=== PATIENT | female | born 1960 | race Caucasian/White ===

== ENCOUNTER → 2017-03-05 | Outpatient (CLI) | payer BC ==
[2017-03-05 17:35] LABS: Basophils % (A) 1 %; CH 30.8; CHCM 33.4; Eosinophils # (A) 0.2 k/uL (0-0.7); Eosinophils % (A) 3 %; HCT 40.8 % (34.0-46.0); HDW 2.36; HGB 13.5 gm/dL (11.4-16.0); Luc # (Auto) 0.16; Luc % (Auto) 2; Lymphocytes # (A) 2.2 k/uL (1.0-4.8); Lymphocytes % (A) 32 %; MCH 30.8 pg (25.0-35.0); MCHC 33.2 g/dL (31.0-37.0); MCV 92.7 fL (80.0-100.0); Mean Platelet Volume 6.3; Monocytes # (A) 0.4 k/uL (0-1.0); Monocytes % (A) 5 %; Neutrophils # (A) 3.8 k/uL (1.3-7.7); Neutrophils % (A) 56 %; RDW 13.4 % (11.5-15.5); WBC 6.7 k/uL (3.8-10.6); WBC (Perox) 6.89
[2017-03-05 17:50] LABS: Anion Gap 10 mmol/L; Blood Urea Nitrogen 19 mg/dL (7-17); Carbon Dioxide 23 mmol/L (22-30); Chloride 107 mmol/L (98-107); Glucose 89 mg/dL (74-99); Non-African American GFR(MDRD) >60 (>60 ml/min/1.73 sqM); Potassium 4.4 mmol/L (3.5-5.1); Sodium 140 mmol/L (137-145)
== END | disposition home or self-care (01) ==
LOC: LABPAT 17:02
PROVIDERS: ATTEND Obstetrics & Gynecology
DX: Z01.812 Encounter for preprocedural laboratory examination (principal)
CPT/HCPCS: 80051; 82565; 82947; 84520; 85025; 86850; 86900; 86901; 87086

== ENCOUNTER 2017-03-12 06:25 | Day surgery (SDC) | payer BC ==
--- NOTE | 2017-03-07 17:01 | HP ---
DATE OF ADMISSION: 03/12/2017 This is a 56-year-old female who presented initially with a report increasing perineal pressure and bulge. She is menopausal and not taking hormonal replacement therapy. She states that the pressure and bulge have been increasing, most especially over the past 12 months. She is sexually active and denies pain with intercourse. There is no issue with incontinence. There are no bowel complaints. The patient has been counseled regarding her condition and about the option of pessary, which she is declining. Review of systems is otherwise negative. Past medical history is significant for: 1. Cystocele diagnosed in the past. 2. Renal cancer in 2007. 3. Hyperlipidemia. PAST SURGICAL HISTORY: 1. Breast biopsy of the right breast of benign nature. 2. Cholecystectomy. 3. Colonoscopy in 2009 with benign polyps. 4. Knee surgery with repair of a ligament in 1974. 5. Lap band placed in 2004, revised in 2007. 6. Nephrectomy in 2007 on the right. 7. Previous tubal ligation. CURRENT MEDICATIONS: 1. Hydrocodone. 2. Ibuprofen as needed for pain. 3. Potassium 99 mg daily. 4. Vitamin B12. 5. Vitamin C. 6. Vitamin D daily. ALLERGIES include: 1. DARVOCET, to which she reports itching. 2. LORTAB, to which she reports hallucinations. Family history is significant for breast cancer in the patient's mother, diabetes and hyperlipidemia as well as hypertension in the patient's father, prostate cancer in patient's father. Reproductive history is significant for 2 liveborn vaginal deliveries, larger baby 8 pounds 8 ounces. 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 She is . Her 's name is Sigifredo. She denies alcohol or drug use. She is a former tobacco smoker but quit at age 24. On exam, this is a pleasant white female, 5 feet 4-1/2 inches, 198 pounds, BMI 33, blood pressure 128/82. The HEENT exam is negative. No thyromegaly. No cervical lymphadenopathy. The breast exam reveals breasts to be bilaterally symmetric to inspection. No skin dimpling, nipple discharge or axillary adenopathy. The abdomen is moderately obese; no obvious organosplenomegaly. Active bowel sounds noted. No CVA tenderness. Cardiac exam reveals regular rate and rhythm without murmur, click or rub. The chest is clear to auscultation in all hansen. The extremities reveal no edema. Good peripheral pulses. On pelvic exam, the cervix is multiparous in appearance. There is a grade 3 uterine prolapse noted along with a grade 3 cystocele. There is no obvious rectocele. Good sphincter tone is appreciated. FIT-negative stool sample. Negative inguinal lymphadenopathy. IMPRESSION: Increasingly symptomatic grade 3 cystocele and grade 3 uterine prolapse. Patient counseled thoroughly and declining option for pessary. She is instead choosing surgical intervention. PLAN: We will proceed with vaginal hysterectomy and cystocele repair. The ovaries will be inspected and left in situ if within normal limits to inspection. The patient does consent to oophorectomy if the ovaries for some reason appear abnormal to inspection. We have reviewed the risks of surgery to include bleeding, infection, perforation or damage to bowel, bladder, ureters, blood vessels or indeed any pelvic or abdominal organs. The risks of anesthesia, aspiration and nerve damage have also been reviewed. The unlikely but possible scenario of is also reviewed. All questions are answered. The ACOG pamphlet on this procedure has been provided and reviewed by the patient. Second opinion has been offered and declined.
[~2017-03-12 06:25] MED LIST: CLINDAMYCIN 900 MG in DEXTROSE 5% IN WATER 50 ML IVPB ONE; DEXAMETHASONE SOD PHOSPHATE 10 MG/ML 1 ML VIAL IV ONE; GENTAMICIN 350 MG in SODIUM CHLORIDE 0.9% 100 ML IVPB ONE; HYDROmorphone 1 MG/ML 1 ML SYRINGE IVP PRN; LIDOCAINE 1% 20 ML VIAL (10MG/ML) FOR IV START INTRADERMA PRN; MIDAZOLAM 2 MG/2 ML VIAL IV PRN; ONDANSETRON 4 MG/2 ML VIAL IVP ONE; SCOPOLAMINE 1.5MG/72HR PATCH TRANSDERM ONE
[2017-03-12] MEDS ORDERED: LACTATED RINGERS 1,000 ML IV ONE ×2 (06:40→09:25)
[2017-03-12] MEDS ORDERED: fentaNYL (PF) 50 MCG/ML 2 ML AMP ONE (08:36)
[2017-03-12] MEDS ORDERED: MORPHINE SULFATE (PF) 0.3 MG/0.3 ML SYR ONE (08:36)
[2017-03-12] MEDS ORDERED: PROPOFOL 10 MG/ML 20 ML VIAL IV ONE (08:36)
[2017-03-12] MEDS ORDERED: LIDOCAINE 1% INJ 10MG/ML (20 ML MDV) ONE (08:36)
[2017-03-12] MEDS ORDERED: MIDAZOLAM 2 MG/2 ML VIAL ONE (08:36)
[2017-03-12] MEDS ORDERED: VASOPRESSIN 20 UNIT/ML 1 ML VIAL SQ ONE (08:56)
[2017-03-12] MEDS ORDERED: BACITRACIN 500 UNIT/GM OINT 28.4 GM TUBE TOPICAL ONE (08:57)
[2017-03-12] MEDS ORDERED: KETOROLAC 30 MG/ML 1 ML VIAL IVP PRN (09:35)
[2017-03-12] MEDS ORDERED: SIMETHICONE 80 MG CHEWABLE PO PRN (09:35)
[2017-03-12] MEDS ORDERED: Acetaminophen-Codeine 300-30mg TAB PO PRN (09:35)
[2017-03-12] MEDS ORDERED: METOCLOPRAMIDE 5 MG/ML 2 ML VIAL IVP PRN (09:35)
[2017-03-12] MEDS ORDERED: ONDANSETRON 4 MG/2 ML VIAL IVP PRN ×2 (09:35→10:25)
[2017-03-12] MEDS ORDERED: ZOLPIDEM 5 MG TAB PO PRN (09:35)
--- NOTE | 2017-03-12 09:35 | P.OP ---
Date of Procedure: 03/12/17 Preoperative Diagnosis: Grade 3 cystocele, grade 3 uterine prolapse Postoperative Diagnosis: Normal-appearing ovaries bilaterally Procedure(s) Performed: Vaginal hysterectomy, anterior colporrhaphy Implants: Anesthesia: spinal Surgeon: Mary Ortiz Telex Operator #1: Mercedes Foote Estimated Blood Loss (ml): 25 IV fluids (ml): 750 Urine output (ml): 200 Pathology: other (Cervix and uterus) Condition: stable Disposition: PACU Indications for Procedure: Operative Findings: Description of Procedure: Patient is brought to the operating suite where a spinal with Duramorph is given. She's placed in the dorsal lithotomy position. The appropriate timeout is performed to assure proper patient and procedural identification. Antibiotics are given. The cervix, vagina, perineum and periurethral areas are all prepped and draped in usual sterile fashion. The bladder is drained for 200 mL of clear yellow urine. The weighted speculum was placed into the vagina. The anterior lip of the cervix is grasped with a double-tooth tenaculum. The cervix is injected circumferentially with a dilute Pitressin solution. A quechan blade scalpel is used to incise the mucosa circumferentially with V like positioning posteriorly. Sponge rolled finger is used to sweep the overlying mucosa from the underlying fascial planes. The peritoneum is entered at 6:00 and suture tied with 2-0 Vicryl suture. The large billed speculum was placed into the peritoneal cavity. At all times the mucosa is swept well from the underlying planes to avoid any bladder and/or ureteral injury. The right uterosacral cardinal ligament complex is identified, clamped cut and held with a hemostat. The same procedure is carried out on the left uterosacral cardinal ligament complex. Uterine vasculature is identified, clamped cut and suture ligated. 2 additional pedicles are taken superior to the vessels. Again, at all times the bladder swept well from the operative field. The anterior peritoneum was entered, Torsten clamps are used across the final pedicles and the specimen is removed. Uterus is noted to contain fibroids. A sponge stick is used to visualize all pedicles, all of which are hemostatically intact. The speculum is changed to the shallow billed speculum. The 2-0 Vicryl suture at 6:00 is then brought around in a pursestring fashion to close the peritoneum. The previously held uterosacral cardinal ligaments are brought across to incorporate the opposite complex as well as vaginal mucosa. An additional [id number] sutures used of 0 Vicryl inferior to this. The anterior edges are held with Allis clamps. The anterior mucosa is now injected with the same dilute Pitressin solution in the midline. The mucosa is opened with Metzenbaum scissors to approximately 1.5 cm inferior to the urethra. The edges are held with Allis clamps and a sponge rolled finger is used to sweep the mucosa from the underlying fascial plane. Tyler catheter is then placed and urine is still clear. 2-0 Vicryl sutures used in an interrupted fashion to bring the fascial edges together in the midline thereby completely reducing the cystocele. The redundant mucosa is trimmed with Metzenbaum scissors. 2-0 Vicryl and her running stitch is used for final mucosal closure. The vagina is packed with one-inch iodophor gauze. Tyelr is noted to be draining clear urine. All sponge needle and enhancement counts are correct at the end of the procedure. Patient is brought back to recovery room in stable condition with vital signs pulse 76, blood pressure 108/69. Complications: None.
[2017-03-12] MEDS ORDERED: diphenhydrAMINE 50 MG/ML 1 ML VIAL IVP PRN (10:25)
[2017-03-12] MEDS ORDERED: NALBUPHINE 10 MG/ML AMPUL IV PRN (10:25)
[2017-03-12] MEDS ORDERED: NALOXONE 0.4 MG/ML 1 ML VIAL IV PRN (10:25)
[2017-03-12] MEDS ORDERED: MORPHINE SULFATE 4 MG/ML SYRINGE IVP PRN (10:25)
[2017-03-12] MEDS: LACTATED RINGERS 1,000 ML IV SCH ×2 (13:50→21:33)
[2017-03-12] MEDS: diphenhydrAMINE 50 MG/ML 1 ML VIAL IVP PRN (16:44)
[2017-03-12 18:01] VITALS: BMI 32.5
[2017-03-12] MEDS ORDERED: SENNOSIDES-DOCUSATE SODIUM 1 EACH TAB PO SCH (21:00)
[2017-03-13] MEDS: diphenhydrAMINE 50 MG/ML 1 ML VIAL IVP PRN (07:40)
[2017-03-13 07:51] VITALS: BP 100/60; PULSE 66; RESP 16; TEMP 97.9
--- NOTE | 2017-03-13 08:55 | P.DS ---
Providers Date of admission: 03/12/17 Expected date of discharge: 03/13/17 Attending physician: Mary Ortiz Primary care physician: Milo [facility] Course: This is a 56-year-old female who presented with a grade 3 uterine prolapse and grade 3 cystocele, requesting surgical repair. Please see my dictated history and physical for details. Patient was admitted and underwent vaginal hysterectomy and cystocele repair under my care on 03/12/2017. She did well intraoperatively, vaginal pack was placed and Tyler catheter also placed to direct drainage. She did receive a spinal with Duramorph for analgesia. Please see my dictated operative note for details. This morning the patient is doing well. She is ambulating and passing flatus. The vaginal packing and Tyler catheter had been removed. Bladder training is occurring at this time. She is tolerating regular diet, pain is well controlled. There is only scant vaginal drainage. There is no CVA tenderness, abdomen is soft and nontender, active bowel sounds are noted. Extremities are negative. Chest is clear. Patient will be discharged home later today in good condition. I have reminded her no intercourse, tampons or douching. She will use extra strength Tylenol as needed for pain, and I have given her prescription for Tylenol No. 3 to be used every 4-6 hours as needed as well. I've asked her to call me with any difficulties voiding, any problems with bowel movements, any copious or red vaginal drainage, with any pain not alleviated by these medications as noted above, or indeed with any concerns. She will resume all of her home pain medications. No intercourse tampons or douching, no heavy lifting, no driving for 2 weeks. She will follow-up in the office with me in 2 weeks. Patient Condition at Discharge: Good Plan - Discharge Summary New Discharge Prescriptions: No Action Cholecalciferol [Vitamin D3] 1,000 unit PO DAILY Cyanocobalamin (Vitamin B-12) [Vitamin B12] 2,500 mcg PO DAILY Multivitamin [Multiple Vitamins] 1 each PO DAILY Magnesium Oxide [Magnesium] 250 mg PO DAILY Discharge Medication List Cholecalciferol [Vitamin D3] 1,000 unit PO DAILY 03/08/17 [History] Cyanocobalamin (Vitamin B-12) [Vitamin B12] 2,500 mcg PO DAILY 03/08/17 [History ] Magnesium Oxide [Magnesium] 250 mg PO DAILY 03/08/17 [History] Multivitamin [Multiple Vitamins] 1 each PO DAILY 03/08/17 [History] Follow up Appointment(s)/Referral(s): Mary Ortiz MD [STAFF PHYSICIAN] - 2 Weeks Discharge Disposition: HOME SELF-CARE
--- NOTE | 2017-03-13 08:56 | P.PN ---
Subjective pod 1spinal duramorph; doing ok; no headache Objective - Vital Signs Vital signs: Vital Signs Temp 97.9 F 03/13/17 07:44 Pulse 66 03/13/17 07:44 Resp 16 03/13/17 07:44 BP 100/60 03/13/17 07:44 Pulse Ox 99 03/13/17 07:44 Intake & Output 03/12/17 03/13/17 03/13/17 18:59 06:59 18:59 Intake Total 1165.75 Output Total 625 1400 Balance 540.75 -1400 Weight 86 kg Intake: IV 1165.75 Output: Urine 600 1400 Uretheral (Tyler) 1400 Estimated Blood Loss 25
[2017-03-13] MEDS ORDERED: ACETAMINOPHEN TAB 325 MG TAB PO PRN (09:36)
== END 2017-03-13 12:20 | disposition home or self-care (01) ==
LOC: OR 06:25 → 4FBP 09:35 → OR 03-13 12:20
PROVIDERS: ATTEND Obstetrics & Gynecology
DX: N81.3 Complete uterovaginal prolapse (principal); D25.9 Leiomyoma of uterus, unspecified; Z90.5 Acquired absence of kidney; Z85.528 Personal history of other malignant neoplasm of kidney; Z79.891 Long term (current) use of opiate analgesic; Z88.1 Allergy status to other antibiotic agents; Z88.5 Allergy status to narcotic agent
CPT/HCPCS: 88307; 58260; 57240; J1200 ×2; J1100; J2405; J1885; J1580; 86850; 86900; 86901

== ENCOUNTER → 2018-10-16 | Outpatient (CLI) | payer BC ==
--- NOTE | 2018-10-19 15:35 | MM ---
Reason for exam: screening (asymptomatic). Last mammogram was performed 2 years and 9 months ago. History: Patient is postmenopausal and has history of other cancer at age 46. Family history of breast cancer in mother and breast cancer in maternal aunt. Excisional biopsy of the right breast. MG 3D Screening Mammo W/Cad Bilateral CC and MLO view(s) were taken. Prior study comparison: January 09, 2016, left breast MG work up mamm w CAD LT. December 30, 2015, bilateral MG screening mammo w CAD. There are scattered fibroglandular densities. Chronic nodularity in the right breast. No significant changes when compared with prior studies. ASSESSMENT: Benign, BI-RAD 2 RECOMMENDATION: Routine screening mammogram of both breasts in 1 year.
== END | disposition home or self-care (01) ==
LOC: RADMAMWWP 09:26
PROVIDERS: ATTEND Obstetrics & Gynecology
DX: Z12.31 Encounter for screening mammogram for malignant neoplasm of breast (principal); Z80.3 Family history of malignant neoplasm of breast
CPT/HCPCS: 77063; 77067

== ENCOUNTER → 2019-10-28 | Outpatient (CLI) | payer BC ==
--- NOTE | 2019-10-29 13:41 | MM ---
Reason for exam: screening (asymptomatic). Last mammogram was performed 1 year ago. History: Patient is postmenopausal and has history of other cancer at age 46. Family history of breast cancer in mother and breast cancer in maternal aunt. Excisional biopsy of the right breast. Physical Findings: A clinical breast exam by your physician is recommended on an annual basis and results should be correlated with mammographic findings. MG Screening Mammo w CAD Bilateral CC and MLO view(s) were taken. Prior study comparison: October 16, 2018, bilateral MG 3d screening mammo w/cad. January 09, 2016, left breast MG work up mamm w CAD LT. There are scattered fibroglandular densities. Benign appearing calcifications in the left breast. No suspicious abnormality. Right upper outer quadrant middle depth focal asymmetry is stable back to 2015. No significant changes when compared with prior studies. ASSESSMENT: Benign, BI-RAD 2 RECOMMENDATION: Routine screening mammogram of both breasts in 1 year.
== END | disposition home or self-care (01) ==
LOC: RADMAMWWP 09:28
PROVIDERS: ATTEND Family Medicine
DX: Z12.31 Encounter for screening mammogram for malignant neoplasm of breast (principal)
CPT/HCPCS: 77067

== ENCOUNTER → 2021-01-25 | Outpatient (CLI) | payer BC ==
--- NOTE | 2021-01-26 12:30 | MM ---
Reason for exam: screening (asymptomatic). Last mammogram was performed 1 year and 3 months ago. History: Patient is postmenopausal and has history of other cancer at age 46. Family history of breast cancer in mother and breast cancer in maternal aunt. Excisional biopsy of the right breast. Physical Findings: A clinical breast exam by your physician is recommended on an annual basis and results should be correlated with mammographic findings. MG Screening Mammo w CAD Bilateral CC and MLO view(s) were taken. Prior study comparison: October 28, 2019, bilateral MG screening mammo w CAD. October 16, 2018, bilateral MG 3d screening mammo w/cad. There are scattered fibroglandular densities. Stable benign calcifications. There is no discrete abnormality. No significant changes when compared with prior studies. ASSESSMENT: Benign, BI-RAD 2 RECOMMENDATION: Routine screening mammogram of both breasts in 1 year.
== END | disposition home or self-care (01) ==
LOC: RADMAMWWP 10:53
PROVIDERS: ATTEND Family Medicine
DX: Z12.31 Encounter for screening mammogram for malignant neoplasm of breast (principal); Z78.0 Asymptomatic menopausal state; Z80.3 Family history of malignant neoplasm of breast
CPT/HCPCS: 77067

== ENCOUNTER → 2021-03-24 | Outpatient (CLI) | payer OTHER ==
--- NOTE | 2021-03-25 04:49 | MR ---
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 Multiplanar multiecho imaging of the right shoulder was performed without contrast. There is some spurring at the AC joint. There is no significant subacromial impingement. There is thi ckening and increased signal in the supraspinatus tendon over the greater tuberosity of the humerus a nd adjacent to the attachment on the humeral head. There is no retraction. There is shoulder joint ef fusion. The glenoid misha appear intact. The subscapularis tendon appears intact. Biceps tendon is intact. Th ere is no evidence of a fracture. I see no focal bone destruction. IMPRESSION: Significant spurring at the AC joint with fluid. There is no significant impingement however on the s upraspinatus tendon and muscle. There is large rotator cuff tear with full-thickness defect near the attachment on the greater tubero sity of the humerus. There is no retraction. There is mild shoulder joint effusion.
== END | disposition home or self-care (01) ==
LOC: RADMRIMAIN 18:52
PROVIDERS: ATTEND Family Medicine
DX: M75.101 Unspecified rotator cuff tear or rupture of right shoulder, not specified as traumatic (principal); M25.411 Effusion, right shoulder

== ENCOUNTER → 2022-06-11 | Outpatient (CLI) | payer BC ==
--- NOTE | 2022-06-11 10:31 | MR ---
EXAMINATION TYPE: MR lumbar spine wo con DATE OF EXAM: 06/11/2022 COMPARISON: CT abdomen pelvis 06/09/2016. HISTORY: Lower back pain, radiates into buttock/groin. TECHNIQUE: Multiplanar, multisequence images of the lumbar spine were acquired without IV contrast. FINDINGS: Lumbar segments are intact. No paraspinal masses are identified. Conus medullaris has a normal appe arance. Multilevel degenerative disc disease. Multilevel Schmorl's nodes. Multilevel disc desiccation is present. L1-L2: No herniation, protrusion or disc bulging. No significant central canal or neural foraminal s tenosis. L2-L3: No herniation, protrusion or disc bulging. No significant central canal or neural foraminal s tenosis. L3-L4: No herniation, protrusion or disc bulging. Facet arthropathy with ligamentum flavum buckling. No significant canal stenosis is present. Mild bilateral neural foraminal stenosis. L4-L5: No herniation, protrusion or disc bulging. Facet arthropathy with ligamentum flavum buckling. No significant canal stenosis is present. Mild bilateral neural foraminal stenosis. L5-S1: No herniation, protrusion or disc bulging. Facet arthropathy with ligamentum flavum buckling. No significant canal stenosis is present. Mild left and moderate right neural foraminal stenosis. Postsurgical changes from right nephrectomy. IMPRESSION: 1. No evidence of disc herniation or significant spinal canal stenosis. 2. Mild multilevel degenerative disc disease.
== END | disposition home or self-care (01) ==
LOC: RADMRIMAIN 07:44
PROVIDERS: ATTEND Family Medicine
DX: M54.17 Radiculopathy, lumbosacral region (principal)
CPT/HCPCS: 72148

== ENCOUNTER → 2023-05-30 | Outpatient (CLI) | payer MEDICARE, BC ==
--- NOTE | 2023-05-30 19:50 | BD ---
EXAMINATION TYPE: Axial Bone Density DATE OF EXAM: 05/30/2023 CLINICAL HISTORY: 63 years old Female. ICD-10 CODE: Z13.820 ENCOUNTER FOR SCREENING FOR OSTEOPOROSI S Height: Weight: FRAX RISK QUESTIONS: Glucocorticoids (More than 3mos): yes (Ex: prednisone, prednisolone, methylprednisolone, dexamethasone, and hydrocortisone). Rheumatoid Arthritis: yes RISK FACTORS HISTORY OF: Surgery to left hip, THR August 2022. Family History of Osteoporosis: possibly her mother. Postmenopausal woman: yes, at about age 50 yrs old. Hyperparathyroidism: no Adrenal Insufficiency: no MEDICATIONS: Prednisone or other steroids: yes, for RA and osteoarthritis, for pain. also injections into joints Additional Medications: metformin, in the past, vit d, methotrexate in the past, infusion, symphonia shashank for her RA, Additional History: right kidney ca, right kidney removal, renal, RA, lap band EXAM MEASUREMENTS: Bone mineral densitometry was performed using the [employer] Direct System. Bone mineral density as measured about the Lumbar spine is: ----- L1-L4(G/cm2): 1.274 T Score Values are as follows: ----- L1: 1.4 ----- L2: -0.3 ----- L3: -0.2 ----- L4: 1.5 ----- L1-L4: 0.8 Z Score Values are as follows: ----- L1: 2.5 ----- L2: 0.8 ----- L3: 0.9 ----- L4: 2.6 ----- L1-L4: 1.9 Bone mineral density has: Decreased -4.6% since study of: 02.16.2015 Bone mineral density about the R hip (g/cm2): 0.940 T Score values are as follows: -----R Neck: 07 -----R Total: -0.5 Z Score values are as follows: -----R Neck: 1.9 -----R Total: 0.3 Bone mineral density has: Decreased -15.1% since study of: 02.16.2015 FRAX%s: The graph provided illustrates a 11.6% chance for a major osteoporotic fx and a 0.3% chance f or the hips probability for fx in 10 years time. IMPRESSION: Normal (Values between +1 and -1 indicate normal bone mass). Consider repeating this study in 5 year s or sooner if there is some new clinical indication. NOTE: T-SCORE=SD OF THE YOUNG ADULT MEAN.
--- NOTE | 2023-05-31 09:03 | MM ---
Reason for Exam: Screening (asymptomatic). Last mammogram was performed 2 year(s) and 4 month(s) ago. Patient History: Menarche at age 10. First Full-Term at age 28. Late child-bearing (after 30). Postmenopausal. Other cancer, age 46. Excisional Biopsy on the Right side. Maternal aunt had breast cancer. Mother had breast cancer. Risk Values: Tomasa 5 year model risk: 3.9%. NCI Lifetime model risk: 14.3%. Prior Study Comparison: 10/16/2018 Bilateral Screening Mammogram, [facility]. 10/28/2019 Bilateral Screening Mammogram, [facility]. 01/25/2021 Bilateral Screening Mammogram, [facility]. Tissue Density: The breast tissue is almost entirely fat. Findings: Analyzed By CAD. There is no suspicious group of microcalcifications or new suspicious mass. Benign-appearing calcification left breast. There is no suspicious group of microcalcifications or new suspicious mass. Benign-appearing calcifications bilaterally. Overall Assessment: Benign, BI-RAD 2 Management: Screening Mammogram of both breasts in [address] [facility] will attempt to contact patient to return for supplemental views and ultrasound if indicated. Patient should continue monthly self-breast exams. A clinical breast exam by your physician is recommended on an annual basis. This exam should not preclude additional follow-up of suspicious palpable abnormalities. Note on Tomasa scores and lifetime risk: 1. A Tomasa score greater than 3% is considered moderate risk. If this is the case, consider specialist referral to assess eligibility for a risk reducing agent. 2. If overall lifetime risk for the development of breast cancer is 20% or higher, the patient may qualify for future screening with alternating mammogram and breast MRI. Electronically signed and approved by: Josué Sommers DO
== END | disposition home or self-care (01) ==
LOC: RADBDWWP 08:57
PROVIDERS: ATTEND Family Medicine
DX: Z12.31 Encounter for screening mammogram for malignant neoplasm of breast (principal); Z13.820 Encounter for screening for osteoporosis; M89.9 Disorder of bone, unspecified; Z78.0 Asymptomatic menopausal state; Z80.3 Family history of malignant neoplasm of breast
CPT/HCPCS: 77063; 77067; 77080

== ENCOUNTER → 2023-10-25 | Outpatient (CLI) | payer MEDICARE, BC ==
[2023-10-25 11:54] LABS: African American GFR (CKD) >90 (>60 ml/min/1.73 sqM); Blood Urea Nitrogen 17 mg/dL (7-17); Non-African American GFR(CKD) >90 (>60 ml/min/1.73 sqM)
--- NOTE | 2023-10-25 15:03 | CT ---
EXAMINATION TYPE: CT abdomen pelvis wo/w con DATE OF EXAM: 10/25/2023 COMPARISON: NONE HISTORY: 63-year-old female N20.0, Calculus of kidney TECHNIQUE: Contiguous axial scanning of the abdomen and pelvis before and after administration of 100 ml Isovue 300 IV contrast. Delayed images through the kidneys and coronal/sagittal reconstructions performed. CT DLP: 1357.7 mGycm Automated exposure control for dose reduction was used. FINDINGS: The heart is normal size without pericardial effusion. Lung bases clear without pleural effusion. There appears to be a tiny hiatal hernia with lap band device in place. Liver mildly enlarged at 19.9 cm with low-attenuation suggesting fatty infiltration. Portal venous sy stem is patent. Bile duct dilated to 8 mm likely chronic postcholecystectomy change. Portal venous sy stem is patent. Adrenal glands, spleen with tiny inferior splenule, and pancreas within normal limits. Patient status post right nephrectomy. There is a 4 mm nonobstructive left lower pole renal calculus. Normal uptake and excretion of contrast from the left kidney. Surgical clips along the pericaval region at the level of the kidneys. No dilated small bowel, free fluid, or free air. No mesenteric or retroperitoneal adenopathy. Oral contrast has progressed into the cecum. There is mild overall stool burden. No pericolonic infla mmatory change. Bladder nondistended. Pelvic floor relaxation. Left-sided pelvic phleboliths. Uterus surgically absen t. Both ovaries are visualized. Bladder nondistended. Bones: Status post left hip total arthroplasty. Moderate degenerative change right hip. There is hype rtrophic facet arthropathy mid to lower lumbar spine. [facility] lower thoracic spine. IMPRESSION: 1. 4 MM NONOBSTRUCTIVE LEFT RENAL STONE. NO HYDRONEPHROSIS. PATIENT IS STATUS POST RIGHT NEPHRECTOMY. 2. LAP BAND DEVICE IN PLACE. TINY HIATAL HERNIA. 3. MILD HEPATOMEGALY AT 19.9 CM WITH AT LEAST MODERATE HEPATIC STEATOSIS. 4. PELVIC FLOOR RELAXATION. STATUS POST HYSTERECTOMY.
== END | disposition home or self-care (01) ==
LOC: RADCTMAIN 11:18
PROVIDERS: ATTEND Urology
DX: N20.0 Calculus of kidney (principal); K44.9 Diaphragmatic hernia without obstruction or gangrene; K76.0 Fatty (change of) liver, not elsewhere classified; Z90.710 Acquired absence of both cervix and uterus; Z90.5 Acquired absence of kidney
CPT/HCPCS: 82565; 84520; 74178; 36415; Q9967

== ENCOUNTER → 2024-06-01 | Outpatient (CLI) | payer MEDICARE ==
--- NOTE | 2024-06-02 17:10 | MM ---
Reason for Exam: Screening (asymptomatic). Last screening mammogram was performed 12 month(s) ago. Patient History: Menarche at age 10. First Full-Term at age 28. Late child-bearing (after 30). Postmenopausal. Other cancer, age 46. Excisional Biopsy on the Right side. Maternal aunt had breast cancer. Mother had breast cancer. Risk Values: Tomasa 5 year model risk: 4.0%. NCI Lifetime model risk: 13.8%. Prior Study Comparison: 10/28/2019 Bilateral Screening Mammogram, [facility]. 01/25/2021 Bilateral Screening Mammogram, [facility]. 05/30/2023 Bilateral MG 3D screening mammo w/cad, [facility]. Tissue Density: There are scattered areas of fibroglandular density. Findings: Analyzed By CAD. Unchanged asymmetric density lateral right CC view. Benign oil cyst calcification redemonstrated on the left. There is no suspicious group of microcalcifications or new suspicious mass in either breast. Overall Assessment: Benign, BI-RAD 2 Management: Screening Mammogram of both breasts in 1 year. See note below in regards to patient's increased 5 year Tomasa score. Patient should continue monthly self-breast exams. A clinical breast exam by your physician is recommended on an annual basis. This exam should not preclude additional follow-up of suspicious palpable abnormalities. Note on Tomasa scores and lifetime risk: 1. A Tomasa score greater than 3% is considered moderate risk. If this is the case, consider specialist referral to assess eligibility for a risk reducing agent. 2. If overall lifetime risk for the development of breast cancer is 20% or higher, the patient may qualify for future screening with alternating mammogram and breast MRI. Electronically signed and approved by: Chantal Georges M.D. Radiologist
== END | disposition home or self-care (01) ==
LOC: RADMAMWWP 12:50
PROVIDERS: ATTEND Family Medicine
DX: Z12.31 Encounter for screening mammogram for malignant neoplasm of breast
CPT/HCPCS: 77063; 77067

== ENCOUNTER → 2024-09-18 | Outpatient (CLI) | payer MEDICARE ==
--- NOTE | 2024-09-18 15:37 | US ---
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 FINDINGS: EXAM MEASUREMENTS: Post Void Residual Volume: bladder not seen post void BUILDING CONSULTANT NOTES: bladder appears sonolucent. Possible wall thickening, measuring 0.65cm. Pt only ortega s left kidney, left jet seen. Color Doppler performed to assess ureteral jets. Bilateral Jets seen: Only one jet seen due to only one kidney Normal Post Void Residual (less than 50ml): Bladder not seen post void IMPRESSION: No evidence for acute process. No significant postvoid residual. [facility], , 09/18/2024 3:34 PM
== END | disposition home or self-care (01) ==
LOC: RADUSWWP 13:28
PROVIDERS: ATTEND Family Medicine
DX: R33.9 Retention of urine, unspecified (principal)
CPT/HCPCS: 76857